=== PATIENT | female | born 1965 | race Caucasian/White ===

== ENCOUNTER 2021-10-06 14:29 | Outpatient (CLI) | payer BC | END 2021-10-06 14:30 | disposition home or self-care (01) | LOC: CSHMRI 14:29 | PROVIDERS: ATTEND Orthopaedic Surgery | DX: S53.22XA Traumatic rupture of left radial collateral ligament, initial encounter (principal); S56.012A Strain of flexor muscle, fascia and tendon of left thumb at forearm level, initial encounter; S63.642A Sprain of metacarpophalangeal joint of left thumb, initial encounter ==